=== PATIENT | female | born 1970 | race African-American/Black ===

== ENCOUNTER 2017-06-13 16:37 | Inpatient (IN) | payer OTHER ==
[2017-06-13 16:47] VITALS: BP 152/71; PULSE 86; RESP 16; TEMP 98.9; O2SAT 100
[2017-06-13 18:10] LABS: AUTOMATED NEUTROPHIL # 4.8 TH/MM3 (1.8-7.7); BASOPHIL % 0.3 % (0.0-2.0); EOSINOPHIL # 0.1 TH/MM3 (0-0.4); EOSINOPHIL % 1.7 % (0.0-4.0); HEMATOCRIT 23.1 % (35.0-46.0); HEMOGLOBIN 7.2 GM/DL (11.6-15.3); LYMPH % 15.5 % (9.0-44.0); MEAN CELL VOLUME 74.7 FL (80.0-100.0); MEAN CORPUSCULAR HEMOGLOBIN 23.4 PG (27.0-34.0); MEAN CORPUSCULAR HGB CONC 31.3 % (32.0-36.0); MEAN PLATELET VOLUME 7.7 FL (7.0-11.0); MONO % 7.6 % (0.0-8.0); MONOCYTE # 0.5 TH/MM3 (0-0.9); NEUT % 74.9 % (16.0-70.0); PLATELET COUNT 338 TH/MM3 (150-450); RED BLOOD COUNT 3.09 MIL/MM3 (4.00-5.30); WHITE BLOOD COUNT 6.5 TH/MM3 (4.0-11.0)
[2017-06-13 18:16] LABS: BILIRUBIN, URINE NEG (NEG); BLOOD, URINE MOD (NEG); GLUCOSE,URINE NEG (NEG); KETONE, URINE NEG (NEG); MUCUS URINE FEW /lpf (OCC); NITRITE,URINE NEG (NEG); URINE COLOR YELLOW (YELLW/STRAW); URINE LEUKOCYTE ESTERASE SMALL (NEG)
[2017-06-13 18:22] LABS: BICARBONATE 26.9 MEQ/L (21.0-32.0); CALCIUM 8.4 MG/DL (8.5-10.1); CREATININE 0.83 MG/DL (0.50-1.00)
[2017-06-13 18:38] LABS: OVALOCYTES 2+ (NORMAL)
[2017-06-13 18:39] LABS: KERATOCYTES OCC (NORMAL)
--- NOTE | 2017-06-13 18:57 | PD ---
HPI Chief Complaint: Bleeding Time Seen by Provider: 18:44 Travel History International Travel<30 days: No Contact w/Intl Traveler<30days: No Traveled to known affect area: No History of Present Illness HPI 46-year-old female with history of uterine fibroids, here for evaluation of heavy vaginal bleeding and generalized weakness. The patient reports heavy bleeding for the last 3 weeks. She is not on any antiplatelets or anticoagulants. No history of bleeding disorder. She has some mild pelvic cramping. She has not had any syncopal episodes, however feels generalized weakness and is that she may pass out upon standing. No chest pain or dyspnea. [facility] Social History Tobacco Use: No Allergies-Medications (Allergen,Severity, Reaction): Coded Allergies: No Known Allergies (Unverified , 06/13/17) Reported Meds & Prescriptions Reported Meds & Active Scripts Active No Active Prescriptions or Reported Medications Review of Systems Except as stated in HPI: all other systems reviewed are Neg Physical Exam Narrative GENERAL: Well-developed, well-nourished, comfortable, no apparent distress. SKIN: Focused skin assessment warm/dry. HEAD: Atraumatic. Normocephalic. EYES: Pupils equal and round. No scleral icterus. No injection or drainage. Conjunctival pallor. ENT: Mucous membranes pink and moist. NECK: Trachea midline. No JVD. CARDIOVASCULAR: No murmur appreciated. RESPIRATORY: No accessory muscle use. Clear to auscultation. Breath sounds equal bilaterally. GASTROINTESTINAL: Abdomen soft, non-tender, nondistended. 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 Normal external genitalia. Moderate blood in the vaginal vault coming from the cervical os. Cervix appears normal. No cervical or intravaginal lacerations. MUSCULOSKELETAL: No obvious deformities. No clubbing. No cyanosis. No edema. NEUROLOGICAL: Awake and alert. No obvious cranial nerve deficits. Motor grossly within normal limits. Normal speech. PSYCHIATRIC: Appropriate mood and affect; insight and judgment normal. Data Data Last Documented VS Vital Signs Date Time Temp Pulse Resp B/P (MAP) Pulse Ox O2 Delivery O2 Flow Rate FiO2 06/13/17 19:18 73 17 159/90 (113) 100 06/13/17 16:47 98.9 Orders Orders Complete Blood Count With Diff (06/13/17 16:50) Basic Metabolic Panel (Bmp) (06/13/17 16:50) Act Partial Throm Time (Ptt) (06/13/17 16:50) Prothrombin Time / Inr (Pt) (06/13/17 16:50) Type And Screen (06/13/17 16:50) Urinalysis - C+S If Indicated (06/13/17 16:50) Red Blood Cells (Rbc) (06/13/17 18:52) Blood Product Administration (06/13/17 18:52) Admit Order (Ed Use Only) (06/13/17 20:34) Labs Laboratory Tests Test 06/13/17 17:37 06/13/17 17:45 Urine Color YELLOW Urine Turbidity CLEAR Urine pH 6.0 Urine Specific [place] 1.028 Urine Protein TRACE mg/dL Urine Glucose (UA) NEG mg/dL Urine Ketones NEG mg/dL Urine Occult Blood MOD Urine Nitrite NEG Urine Bilirubin NEG Urine Urobilinogen 2.0 MG/DL Urine Leukocyte Esterase SMALL Urine RBC /hpf Urine WBC 1 /hpf Urine Mucus FEW /lpf Microscopic Urinalysis Comment CULT NOT INDICATED White Blood Count 6.5 TH/MM3 Red Blood Count 3.09 MIL/MM3 Hemoglobin 7.2 GM/DL Hematocrit 23.1 % Mean Corpuscular Volume 74.7 FL Mean Corpuscular Hemoglobin 23.4 PG Mean Corpuscular Hemoglobin Concent 31.3 % Red Cell Distribution Width 25.0 % Platelet Count 338 TH/MM3 Mean Platelet Volume 7.7 FL Neutrophils (%) (Auto) 74.9 % Lymphocytes (%) (Auto) 15.5 % Monocytes (%) (Auto) 7.6 % Eosinophils (%) (Auto) 1.7 % Basophils (%) (Auto) 0.3 % Neutrophils # (Auto) 4.8 TH/MM3 Lymphocytes # (Auto) 1.0 TH/MM3 Monocytes # (Auto) 0.5 TH/MM3 Eosinophils # (Auto) 0.1 TH/MM3 Basophils # (Auto) 0.0 TH/MM3 CBC Comment AUTO DIFF Differential Comment AUTO DIFF CONFIRMED Platelet Estimate NORMAL Platelet Morphology Comment NORMAL Ovalocytes 2+ Keratocytes OCC Prothrombin Time 10.0 SEC Prothromb Time International Ratio 1.0 RATIO Activated Partial Thromboplast Time 25.0 SEC Blood Urea Nitrogen 16 MG/DL Creatinine 0.83 MG/DL Random Glucose 93 MG/DL Calcium Level 8.4 MG/DL Sodium Level 143 MEQ/L Potassium Level 3.6 MEQ/L Chloride Level 109 MEQ/L Carbon Dioxide Level 26.9 MEQ/L Anion Gap 7 MEQ/L Estimat Glomerular Filtration Rate 74 ML/MIN MDM Medical Decision Making Medical Screen Exam Complete: Yes Emergency Medical Condition: Yes Differential Diagnosis Menorrhagia, symptomatic anemia, uterine fibroids Narrative Course Vital signs show heart rate 86, blood pressure 152/71, pulse ox 100% on room air , oral temp of 98.9F. CBC: WBC 6.5, hemoglobin 7.2, hematocrit 23.1, platelets 338. BMP is unremarkable. Patient was written for 2 units of PRBCs. She will be admitted for further treatment and evaluation of symptomatic anemia with menorrhagia. Case discussed with hospitalist Dr. Shaffer who will admit the patient to her service. Diagnosis Primary Impression: Symptomatic anemia Additional Impression: Menorrhagia Qualified Codes: N92.1 - Excessive and frequent menstruation with irregular cycle Admitting Information Admitting Physician Requests: Observation Scripts No Active Prescriptions or Reported Meds Jonnathan Kwon MD Jun 13, 2017 18:57
[2017-06-13 19:18] VITALS: BP 159/90; PULSE 73; RESP 17; O2SAT 100
[2017-06-13] MEDS: SODIUM CHLOR 0.9% 1000 ML INJ 1,000 ML IV SCH (21:16)
[2017-06-13] MEDS ORDERED: ACETAMINOPHEN 325 MG TAB PO PRN (21:30)
[2017-06-13] MEDS ORDERED: SODIUM CHLORIDE 0.9% FLUSH 10 ML FLUSH IV FLUSH PRN (21:30)
[2017-06-13] MEDS ORDERED: ONDANSETRON HCL 4 MG/2 ML VIAL IVP PRN (21:30)
[2017-06-13] MEDS ORDERED: NALOXONE HCL 0.4 MG/ML AMP IV PUSH PRN (21:30)
--- NOTE | 2017-06-13 21:57 | HHI.HP ---
[facility] Physician Anastasiya Cruz MD Admission Diagnosis Symptomatic anemia, menorrhagia Diagnoses: Travel History International Travel<30 Days: No Contact w/Intl Traveler <30 Da: No Traveled to Known Affected Are: No History of Present Illness 46-year-old female with a past medical history significant for uterine fibroids presents to the emergency department for evaluation of symptomatic anemia. The patient reports that she has had 3-4 weeks of vaginal bleeding which is not uncommon for her. Her last transfusion was 04/24/17. She reports dizziness, lightheadedness, shortness of breath and fatigue. She denies any chest pain. No nausea/vomiting. The patient reports that she spoke with her primary care provider who suggested she come to the emergency department for further evaluation. Review of Systems Except as stated in HPI: all other systems reviewed are Neg Past Family Social History Past Medical History Uterine fibroids Past Surgical History Bilateral tubal ligation Reported Medications Reported Meds & Active Scripts Active No Active Prescriptions or Reported Medications Allergies: Coded Allergies: No Known Allergies (Unverified , 06/13/17) Family History Dad with diabetes mellitus Social History Denies alcohol, tobacco and illicit drugs Physical Exam Vital Signs Vital Signs Date Time Temp Pulse Resp B/P (MAP) Pulse Ox O2 Delivery O2 Flow Rate FiO2 06/13/17 19:18 73 17 159/90 (113) 100 06/13/17 16:47 98.9 86 16 152/71 (98) 100 Physical Exam GENERAL: female sitting up in bed SKIN: No rashes, ecchymoses or lesions. Cool and dry. HEAD: Atraumatic. Normocephalic. No temporal or scalp tenderness. EYES: Pupils equal round and reactive. Extraocular motions intact. No scleral icterus. No injection or drainage. ENT: Nose without bleeding, purulent drainage or septal hematoma. Throat without erythema, tonsillar hypertrophy or exudate. Uvula midline. Airway patent. NECK: Trachea midline. No JVD or lymphadenopathy. Supple, nontender, no meningeal signs. CARDIOVASCULAR: Regular rate and rhythm without murmurs, gallops, or rubs. RESPIRATORY: Clear to auscultation. Breath sounds equal bilaterally. No wheezes , rales, or rhonchi. GASTROINTESTINAL: Abdomen soft, non-tender, nondistended. No hepato-splenomegaly , or palpable masses. No guarding. MUSCULOSKELETAL: Extremities without clubbing, cyanosis, or edema. No joint tenderness, effusion, or edema noted. No calf tenderness. NEUROLOGICAL: Awake and alert. Cranial nerves II through XII intact. Motor and sensory grossly within normal limits. Normal speech. Laboratory Laboratory Tests Test 06/13/17 17:37 06/13/17 17:45 Urine Color YELLOW Urine Turbidity CLEAR Urine pH 6.0 Urine Specific [place] 1.028 Urine Protein TRACE Urine Glucose (UA) NEG Urine Ketones NEG Urine Occult Blood MOD Urine Nitrite NEG Urine Bilirubin NEG Urine Urobilinogen 2.0 Urine Leukocyte Esterase SMALL Urine RBC Urine WBC 1 Urine Mucus FEW Microscopic Urinalysis Comment CULT NOT INDICATED White Blood Count 6.5 Red Blood Count 3.09 Hemoglobin 7.2 Hematocrit 23.1 Mean Corpuscular Volume 74.7 Mean Corpuscular Hemoglobin 23.4 Mean Corpuscular Hemoglobin Concent 31.3 Red Cell Distribution Width 25.0 Platelet Count 338 Mean Platelet Volume 7.7 Neutrophils (%) (Auto) 74.9 Lymphocytes (%) (Auto) 15.5 Monocytes (%) (Auto) 7.6 Eosinophils (%) (Auto) 1.7 Basophils (%) (Auto) 0.3 Neutrophils # (Auto) 4.8 Lymphocytes # (Auto) 1.0 Monocytes # (Auto) 0.5 Eosinophils # (Auto) 0.1 Basophils # (Auto) 0.0 CBC Comment AUTO DIFF Differential Comment AUTO DIFF CONFIRMED Platelet Estimate NORMAL Platelet Morphology Comment NORMAL Ovalocytes 2+ Keratocytes OCC Prothrombin Time 10.0 Prothromb Time International Ratio 1.0 Activated Partial Thromboplast Time 25.0 Blood Urea Nitrogen 16 Creatinine 0.83 Random Glucose 93 Calcium Level 8.4 Sodium Level 143 Potassium Level 3.6 Chloride Level 109 Carbon Dioxide Level 26.9 Anion Gap 7 Estimat Glomerular Filtration Rate 74 Result Diagram: 06/13/17174406/13/171744 Caprini VTE Risk Assessment Caprini VTE Risk Assessment: No/Low Risk (score <= 1) Caprini Risk Assessment Model Point Value = 1 Point Value = 2 Point Value = 3 Point Value = 5 Age 41-60 Minor surgery BMI > 25 kg/m2 Swollen legs Varicose veins or History of unexplained or recurrent spontaneous Oral contraceptives or hormone replacement Sepsis (< 1 month) Serious lung disease, including pneumonia (< 1 month) Abnormal pulmonary function Acute myocardial infarction Congestive heart failure (< 1 month) History of inflammatory bowel disease Medical patient at bed rest Age 61-74 Arthroscopic surgery Major open surgery (> 45 min) Laparoscopic surgery (> 45 min) Malignancy Confined to bed (> 72 hours) Immobilizing plaster cast Central venous access Age >= 75 History of VTE Family history of VTE Factor V Leiden Prothrombin [id number] Lupus anticoagulant Anticardiolipin antibodies Elevated serum homocysteine Heparin-induced thrombocytopenia Other congenital or acquired thrombophilia Stroke (< 1 month) Elective arthroplasty Hip, pelvis, or leg fracture Acute spinal cord injury (< 1 month) Prophylaxis Regimen Total Risk Factor Score Risk Level Prophylaxis Regimen 0-1 Low Early ambulation 2 Moderate Order ONE of the following: *Sequential Compression Device (SCD) *Heparin 5000 units SQ BID 3-4 Higher Order ONE of the following medications: *Heparin 5000 units SQ TID *Enoxaparin/Lovenox 40 mg SQ daily (WT < 150 kg, CrCl > 30 mL/min) *Enoxaparin/Lovenox 30 mg SQ daily (WT < 150 kg, CrCl > 10-29 mL/min) *Enoxaparin/Lovenox 30 mg SQ BID (WT < 150 kg, CrCl > 30 mL/min) AND/OR *Sequential Compression Device (SCD) 5 or more Highest Order ONE of the following medications: *Heparin 5000 units SQ TID (Preferred with Epidurals) *Enoxaparin/Lovenox 40 mg SQ daily (WT < 150 kg, CrCl > 30 mL/min) *Enoxaparin/Lovenox 30 mg SQ daily (WT < 150 kg, CrCl > 10-29 mL/min) *Enoxaparin/Lovenox 30 mg SQ BID (WT < 150 kg, CrCl > 30 mL/min) AND *Sequential Compression Device (SCD) Assessment and Plan Assessment and Plan Assessment/plan: 1. Symptomatic anemia H&H 7.2/23.1 Transfuse 2 units PRBCs 2/2 vaginal bleeding 2. 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 In the case of services not specified as inpatient-only, they are appropriately provided as inpatient services in accordance with the 2-midnight benchmark. Estimated LOS (days): 2 2 days is the estimated time the patient will need to remain in the hospital, assuming treatment plan goals are met and no additional complications. Post-Hospital Plan: Not yet determined Tona Shaffer MD Jun 13, 2017 21:57
[2017-06-13 23:01] VITALS: BP 135/74; PULSE 82; RESP 18; TEMP 99; O2SAT 100
[2017-06-13 23:19] VITALS: BP 154/85; PULSE 90; RESP 18; TEMP 98.9
[2017-06-14 00:49] VITALS: BP 145/85; PULSE 82; RESP 16; TEMP 98.8; O2SAT 100
[2017-06-14 02:09] VITALS: BP 155/83; PULSE 84; RESP 18; TEMP 99.3; O2SAT 100
[2017-06-14 02:26] VITALS: BP 150/90; PULSE 68; RESP 16; TEMP 99.3; O2SAT 100
[2017-06-14 03:35] VITALS: BP 154/92; PULSE 84; RESP 16; TEMP 99.2
[2017-06-14 06:26] LABS: AUTOMATED NEUTROPHIL # 5.1 TH/MM3 (1.8-7.7); BASOPHIL # 0.1 TH/MM3 (0-0.2); BASOPHIL % 0.8 % (0.0-2.0); EOSINOPHIL # 0.1 TH/MM3 (0-0.4); EOSINOPHIL % 1.9 % (0.0-4.0); HEMOGLOBIN 9.2 GM/DL (11.6-15.3); LYMPH % 15.6 % (9.0-44.0); MEAN CELL VOLUME 76.6 FL (80.0-100.0); MEAN CORPUSCULAR HEMOGLOBIN 25.2 PG (27.0-34.0); MEAN CORPUSCULAR HGB CONC 32.9 % (32.0-36.0); MONO % 5.5 % (0.0-8.0); MONOCYTE # 0.4 TH/MM3 (0-0.9); NEUT % 76.2 % (16.0-70.0); PLATELET COUNT 307 TH/MM3 (150-450); RED BLOOD COUNT 3.66 MIL/MM3 (4.00-5.30); RED CELL DISTRIBUTION WIDTH 23.9 % (11.6-17.2); WHITE BLOOD COUNT 6.7 TH/MM3 (4.0-11.0)
[2017-06-14 06:45] LABS: BICARBONATE 23.2 MEQ/L (21.0-32.0); CALCIUM 8.2 MG/DL (8.5-10.1); CREATININE 0.72 MG/DL (0.50-1.00)
[2017-06-14 06:47] VITALS: BP 162/94; PULSE 87; RESP 18; O2SAT 100
[2017-06-14 07:17] LABS: OVALOCYTES 1+ (NORMAL)
[2017-06-14] MEDS: SODIUM CHLOR 0.9% 1000 ML INJ 1,000 ML IV SCH (07:56)
[2017-06-14] MEDS ORDERED: SODIUM CHLORIDE 0.9% FLUSH 10 ML FLUSH IV FLUSH SCH (09:00)
[2017-06-14] MEDS ORDERED: FERR325T18 PO (09:23)
--- NOTE | 2017-06-14 09:27 | HHI.PR ---
Subjective Remarks Symptomatic anemia/dysfunctional uterine bleed 06/14/17-patient seen and examined, she was transfused 2 units packed red blood cell and denies any symptoms of weakness, no acute event overnight. States, she will follow up with gynecology Objective Vitals Vital Signs Date Time Temp Pulse Resp B/P (MAP) Pulse Ox O2 Delivery O2 Flow Rate FiO2 06/14/17 06:47 87 18 162/94 (116) 100 Room Air 06/14/17 03:35 99.2 84 16 154/92 06/14/17 02:26 99.3 68 16 150/90 100 06/14/17 02:09 99.3 84 18 155/83 100 06/14/17 00:49 98.8 82 16 145/85 100 06/13/17 23:19 98.9 90 18 154/85 06/13/17 23:01 99.0 82 18 135/74 100 06/13/17 19:18 73 17 159/90 (113) 100 06/13/17 16:47 98.9 86 16 152/71 (98) 100 I/O 06/13/17 06/13/17 06/13/17 06/14/17 06/14/17 06/14/17 07:00 15:00 23:00 07:00 15:00 23:00 Intake Total 800 ml Balance 800 ml Intake Packed Cells 800 ml Result Diagram: 06/14/1751106/14/17511 Objective Remarks GENERAL: NAD SKIN: Warm and dry. HEAD: Normocephalic. EYES: No scleral icterus. No injection or drainage. NECK: Supple, trachea midline. No JVD or lymphadenopathy. CARDIOVASCULAR: Regular rate and rhythm without murmurs, gallops, or rubs. RESPIRATORY: Breath sounds equal bilaterally. No accessory muscle use. GASTROINTESTINAL: Abdomen soft, non-tender, nondistended. MUSCULOSKELETAL: No cyanosis, or edema. BACK: Nontender without obvious deformity. No CVA tenderness. A/P Problem List: (1) Symptomatic anemia ICD Code: D64.9 - Anemia, unspecified Status: Acute (2) Menorrhagia ICD Code: N92.0 - Excessive and frequent menstruation with regular cycle Status: Acute Assessment and Plan 46-year-old female with 1. Symptomatic anemia Transfused 2 units PRBCs H&H currently stable 2. 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
== END 2017-06-14 10:03 | disposition home or self-care (01) | DRG 812 ==
LOC: NEPD 16:37 → NEDA 20:36 → OBSVTOIN 21:21 → NEDH 06-14 01:21
PROVIDERS: ADMIT Hospitalist; ATTEND Hospitalist
PROC: 30233N1 Transfusion of Nonautologous Red Blood Cells into Peripheral Vein, Percutaneous Approach (ICD-10-PCS; principal; 2017-06-13)
DX: D50.0 Iron deficiency anemia secondary to blood loss (chronic) (principal); D25.9 Leiomyoma of uterus, unspecified; N92.0 Excessive and frequent menstruation with regular cycle
CPT/HCPCS: 36430; 80048; 81001; 85025; 85610; 85730; 86850; 86900; 86901; 86920; 99285; J7030; P9016